=== PATIENT | male | born 1955 | race Two or more races ===

== ENCOUNTER 2019-10-29 14:57 | Outpatient (CLI) | payer OTHER ==
[~2019-10-29] VITALS: Ht 180.3 cm; Wt 90.7 kg
== END 2019-10-29 15:27 | disposition home or self-care (01) ==
LOC: OFIC 805 14:57
PROVIDERS: ATTEND Otolaryngology
DX: H90.3 Sensorineural hearing loss, bilateral (principal); H60.8X3 Other otitis externa, bilateral; H61.23 Impacted cerumen, bilateral; J31.0 Chronic rhinitis; R42 Dizziness and giddiness

== ENCOUNTER 2019-12-26 07:47 | Outpatient (CLI) | payer OTHER | END 2019-12-26 07:50 | disposition home or self-care (01) | LOC: LAB 07:47 | PROVIDERS: ATTEND Radiology Diagnostic Radiology | DX: I63.89 Other cerebral infarction (principal) ==

== ENCOUNTER 2019-12-31 07:47 | Outpatient (CLI) | payer OTHER | END 2019-12-31 07:51 | disposition home or self-care (01) | LOC: TOM 07:47 | PROVIDERS: ATTEND Internal Medicine Cardiovascular Disease | DX: I63.89 Other cerebral infarction (principal); G44.51 Hemicrania continua | CPT/HCPCS: 70470; Q9965 ==

== ENCOUNTER 2022-02-15 19:36 | Inpatient (IN) | payer OTHER ==
[~2022-02-15] VITALS: Ht 180.3 cm; Wt 90.7 kg
[2022-02-15] MEDS ORDERED: KETO10TA2 PO (22:40)
== END 2022-02-18 17:25 | disposition home or self-care (01) | DRG 309 ==
LOC: ER 19:36 → MEDI 22:42
PROVIDERS: ADMIT Internal Medicine; ATTEND Internal Medicine
PROC: B345ZZZ Ultrasonography of Bilateral Common Carotid Arteries (ICD-10-PCS; 2022-02-15)
PROC: B24BZZZ Ultrasonography of Heart with Aorta (ICD-10-PCS; 2022-02-15)
PROC: BW28ZZZ Computerized Tomography (CT Scan) of Head (ICD-10-PCS; 2022-02-15)
PROC: 4A12X4Z Monitoring of Cardiac Electrical Activity, External Approach (ICD-10-PCS; principal; 2022-02-16)
DX: I48.4 Atypical atrial flutter (principal); I24.9 Acute ischemic heart disease, unspecified; R55 Syncope and collapse; Z20.822 Contact with and (suspected) exposure to COVID-19

== ENCOUNTER 2024-06-25 05:59 | Day surgery (SDC) | payer OTHER ==
[2024-06-19 09:50] VITALS: BP 161/91
[2024-06-19 10:29] LABS: PH,URINE 6.5 (5.0-8.0); URINE APPEARANCE Clear; URINE BILIRRUBIN Negative (NEGATIVE); URINE BLOOD Negative; URINE COLOR Yellow; URINE GLUCOSE Negative (NEGATIVE); URINE KETONE Negative (NEGATIVE); URINE LEUKOCYTE Negative; URINE NITRATE Negative; URINE PROTEIN Negative (NEGATIVE); URINE UROBILINOGEN 0.2 E.U./dl
[2024-06-19 10:33] LABS: URINE RBC 3.8 uL (0.0-20.8)
[2024-06-19 10:37] LABS: HEMATOCRIT 45.1 % (39.0-48.0); HEMOGLOBIN 15.8 g/dL (13-16.00); MEAN CELL VOLUME 95.1 fL (80.0-100.00); MEAN CORPUSCULAR HEMOGLOBIN 33.3 pg (27.00-32.0); PLATELET COUNT 199 K/uL (150-450); RED BLOOD COUNT 4.74 M/uL (4.00-6.00); RED CELL DISTRIBUTION WIDTH 13.6 % (11.5-14.5)
[2024-06-19 11:03] LABS: URINE BACTERIA 2.4 uL (0.0-1933); URINE CAST 0.14 uL (0.0-1.40); URINE EPITHELIAL CELLS 0.3 uL (0.0-38.8)
[2024-06-19 11:23] LABS: INR 1.04; PARTIAL THROMBOPLASTIN TIME 30.3 SECONDS (22.0-34.0); PROTHROMBIN TIME 11.3 SECONDS (9.0-11.5)
[2024-06-19 11:38] LABS: ALBUMIN 3.8 gm/dL (3.4-5.0); BILIRUBIN TOTAL 0.67 mg/dL (0.3-1.2); CALCIUM 9.5 mg/dL (8.5-10.1); CREATININE SERUM 0.88 mg/dL (0.70-1.30); GFR 85.61; GLOBULINA 3.4 G/DL (2.4-3.5); POTASSIUM 4.75 mEq/L (3.5-5.1); TOTAL PROTEIN 7.2 gm/dL (6.4-8.2)
[~2024-06-25] VITALS: Ht 180.3 cm; Wt 90.7 kg
[~2024-06-25 05:59] MED LIST: KETO10TA2 PO; eliquis
[2024-06-25] MEDS ORDERED: CEFAZOLIN SODIUM 1,000 MG VIAL ONE (10:15)
[2024-06-25] MEDS ORDERED: BUPIVACAINE HCL/MPF 0.5% 30ML VIAL ONE (10:15)
[2024-06-25] MEDS ORDERED: POVIDONE-IODINE SCRUB 118 ML BOTT TOP ONE (10:34)
[2024-06-25] MEDS ORDERED: POVIDONE-IODINE 118 ML BOTT TOP ONE (10:35)
[2024-06-25] MEDS ORDERED: SUGAMMADEX SODIUM 200 MG/2 ML VIAL IV ONE (12:00)
[2024-06-25] MEDS ORDERED: MORPHINE SULFATE 4 MG/ML VIAL IV ONE (12:55)
== END 2024-06-25 16:10 | disposition home or self-care (01) ==
LOC: CIR.AMB 05:59
PROVIDERS: ATTEND Surgery
DX: K40.90 Unilateral inguinal hernia, without obstruction or gangrene, not specified as recurrent (principal); Z53.31 Laparoscopic surgical procedure converted to open procedure; Z95.0 Presence of cardiac pacemaker
CPT/HCPCS: 49505; C1781